=== PATIENT | female | born 1980 | race Caucasian/White ===

== ENCOUNTER 2017-09-08 21:14 | Observation (INO) | payer OTHER, MEDICAID ==
[~2017-09-08] VITALS: Ht 167.6 cm; Wt 88.5 kg
[2017-09-08 21:18] VITALS: BP 132/86
[2017-09-08] MEDS ORDERED: LISINOPRIL10 MG PO (21:26)
[2017-09-08 21:52] LABS: ABSOLUTE BASOPHILS 0.2 thou/uL (0.0-0.2); ABSOLUTE EOSINOPHILS 0.3 thou/uL (0.0-0.7); ABSOLUTE LYMPHOCYTES 3.1 thou/uL (0.8-5.3); ABSOLUTE MONOCYTES 1.3 thou/uL (0.0-1.2); ABSOLUTE NEUTROPHILS 11.2 thou/uL (1.6-8.1); HEMOGLOBIN 15.7 gm/dL (12.0-15.0); MCH 30.8 pg (26.0-34.0); MCHC 33.4 g/dL (28.0-37.0); MCV 92.1 fL (80.0-100.0); MONOCYTES 8.2 %; MPV 6.9 fl. (7.2-11.1); NUCLEATED RBCS 0 /100WBC; PLATELET COUNT* 234 thou/uL (150-400); POLYS 69.8 %; RDW-CV 13.2 % (10.5-14.5); WBC 16.1 thou/uL (4.0-11.0)
[2017-09-08 21:59] LABS: ANION GAP 4 mmol/L (7-16); BUN 15 mg/dL (7-18); CALCIUM 8.2 mg/dL (8.5-10.1); CHLORIDE 105 mmol/L (98-107); CO2 27 mmol/L (21-32); CREATININE 1.1 mg/dL (0.6-1.3); GLUCOSE 82 mg/dL (70-99); POTASSIUM 4.4 mmol/L (3.5-5.1); SODIUM 136 mmol/L (136-145)
[2017-09-08 22:10] LABS: ALKALINE PHOSPHATASE 45 U/L (46-116); LIPASE 60 U/L (73-393); NT-PRO BRAIN NAT PEPTIDE 10 pg/mL (<300); SGOT 17 U/L (15-37); SGPT 26 U/L (30-65); TOTAL BILIRUBIN 0.4 mg/dL (<0.1-1.0); TOTAL PROTEIN 5.9 g/dL (6.4-8.2); TROPONIN-I LEVEL <0.06 ng/mL (<0.06)
[2017-09-08 22:43] LABS: URINE BLOOD NEGATIVE (Negative); URINE CLARITY CLEAR; URINE COLOR DARK YELLOW; URINE GLUCOSE-RANDOM NEGATIVE (Negative); URINE KETONES TRACE (Negative); URINE LEUKOCYTES-REFLEX NEGATIVE (Negative); URINE NITRITE-REFLEX NEGATIVE (Negative); URINE PROTEIN TRACE (Negative); URINE SPECIFIC GRAVITY >= 1.030 (1.005-1.030); URINE UROBILINOGEN 0.2 E.U./dl (0.2-1.0)
[2017-09-08 22:44] LABS: URINE BILIRUBIN 1+ (Negative)
[2017-09-08 22:46] LABS: ICTOTEST (BILI CONFIRMATORY) Negative (Negative)
[2017-09-08 22:53] LABS: AMP/METHAMP Negative (Negative); BARBITURATES Negative (Negative); BENZODIAZEPINES POSITIVE (Negative); COCAINE Negative (Negative); METHADONE Negative (Negative); OPIATES POSITIVE (Negative); PCP Negative (Negative); THC POSITIVE (Negative)
[2017-09-09 00:40] VITALS: BP 120/63
[2017-09-09 03:56] LABS: HEMATOCRIT 44.7 % (37.0-47.0); HEMOGLOBIN 14.7 gm/dL (12.0-15.0); MCH 30.6 pg (26.0-34.0); MCV 92.7 fL (80.0-100.0); MPV 7.3 fl. (7.2-11.1); RBC 4.82 mil/uL (4.20-5.00); WBC 12.2 thou/uL (4.0-11.0)
[2017-09-09 04:32] LABS: ALBUMIN 2.7 g/dL (3.4-5.0); CALCIUM 7.8 mg/dL (8.5-10.1); CREATININE 0.9 mg/dL (0.6-1.3); POTASSIUM 4.6 mmol/L (3.5-5.1); TOTAL BILIRUBIN 0.6 mg/dL (<0.1-1.0); TOTAL PROTEIN 5.2 g/dL (6.4-8.2)
[2017-09-09 08:00] VITALS: BP 95/50
[2017-09-09] MEDS ORDERED: OMEPRAZOLE40 MG PO (09:25)
--- NOTE | 2017-09-09 10:48 | NUR ---
patients spo2 on room air was 97%, HR was 88.
--- NOTE | 2017-09-09 11:42 | EKG ---
[place] [address] ELECTROCARDIOGRAM REPORT Name: ANG JOHN Room: [address]#: [id number] Admission: 09/08/17 Attend Phys: Mino Diaz MD Discharge: Date of : 84 Report #: [id number] THIS REPORT FOR: //name// [facility] ED Test Date: 2017-09-08 Test Time: 21:21:20 Pat Name: ANG JOHN Department: Room: [facility] Gender: F [employer]: [place] : 1980 Requested By: Guillermo Mercado Order Number: [id number] MD: David Gonzalez Measurements Intervals [place] Rate: 89 P: 46 WA: 160 QRS: 68 QRSD: 78 T: 40 QT: 347 QTc: 423 Interpretive Statements Sinus rhythm No previous ECG available for comparison Electronically Signed On 09-09-2017 11:42:28 CDT by David Gonzalez [email or web address] <ELECTRONICALLY SIGNED> By: David Gonzalez MD, [facility] 09/09/17 1142 2121 20 David Gonzalez MD, FACC /EPI
[2017-09-09 13:15] VITALS: BP 95/50
--- NOTE | 2017-09-09 15:32 | NUR ---
PATIENT A&OX4, ROOM AIR, IV RIGHT FOREARM, FLUIDS INFUSSING. UP STAND BY, STEADY GAIT. C/O PAIN AND NAUSEA, MINIMAL RELIEF WITH MEDICATION. NEW PRESCRIPTIONS GIVEN TO PATIENT. REVIEWED DISCHARGE PAPERWORK WITH SPOUSE AT BEDSIDE. VERBALIZES UNDERSTANDING, ANSWERED ALL QUESTIONS AND CONCERNS. INSTRUCTED TO FOLLOW UP WITH PRIMARY CARE PROVIDER. NO OTHER CONCERNS AT THIS TIME. APPROPRAITE AND COOPORATIVE WITH CARE.
== END 2017-09-09 14:20 | disposition home or self-care (01) ==
LOC: M.ERS 21:14 → M.TBA-ER 23:25 → M.3W 23:25
PROVIDERS: Emergency Medicine; ADMIT Internal Medicine
DX: R10.9 Unspecified abdominal pain (principal); F41.9 Anxiety disorder, unspecified; F12.90 Cannabis use, unspecified, uncomplicated; E66.9 Obesity, unspecified; M19.90 Unspecified osteoarthritis, unspecified site; I10 Essential (primary) hypertension; F11.90 Opioid use, unspecified, uncomplicated; F17.210 Nicotine dependence, cigarettes, uncomplicated